=== PATIENT | female | born 1970 | race African-American/Black ===

== ENCOUNTER → 2020-08-20 | Outpatient (CLI) | payer OTHER ==
--- NOTE | ~2020-08-20 | PFR/MVV ---
[facility] [place] [address] PULMONARY FUNCTION MVV/REPORT Name: MAGDA HILL Room #: [facility]#: [id number] Admission: 08/20/20 Attend Phys: Chin Tariq MD Discharge: Date of : 70 Report #: [id number] THIS REPORT FOR: //name// >> SPIROMETRY: (BTPS) Height: 66 in cm Weight: 213 lbs kg Exam Date: 08/15/20 PRE-RX POST-RX PRED BEST %PRED BEST %PRED %CHG FVC LITERS . 3.54 . 2.63 . 76 . 2.66 . 75 . -1 FEV1 LITERS . 2.69 . 2.04 . 76 . 1.98 . 74 . -3 FEV1/FVC % . 75 . 76 . 101 . 75 . 99 . -2 BNU62-46% L/Sec . 3.01 . 1.75 . 58 . 1.67 . 56 . -4 PEF L/SEC . 6.23 . 5.63 . 90 . 3.66 . 59 . -35 FEF50/FIF50 UNITLESS . 3.76 . 2.79 . 74 . 2.17 . 58 . -22 MVV L/Min . 100 . 65 . 65 f 1/Min . . . >> LUNG VOLUMES: (BTPS) PRE-RX POST-RX PRED AVG %PRED AVG %PRED %CHG VC Liters . 3.54 . 3.83 . 108 . . . TLC Liters . 5.38 . 3.90 . 73 . . . RV Liters . 1.92 . 0.07 . 4 . . . RV/TLC % . 35 . 2 . 5 . . . FRC PL Liters . 2.53 . 0.65 . 26 . . . FRC N2 Liters . 2.53 . . . . . ERV Liters . 1.18 . 0.57 . 49 . . . IC Liters . 2.36 . 3.25 . 138 . . . >> DIFFUSION: DLCO ml/Min/mmHg . 26.5 . 18.7 . 70 . . . DL Jairo ml/Min/mmHg . 26.5 . 18.7 . 70 . . . DLCO/VA ml/Min/mmHg . 4.01 . 4.45 . 111 . . . VA Liters . . 4.20 . . . . COMMENTS: COMMENTS: >> RESISTANCE: [facility] [address] [place] [address] PULMONARY FUNCTION MVV/REPORT Name: MAGDA HILL SOPHIA Room #: [facility].#: [id number] Admission: 08/20/20 Attend Phys: Chin Tariq MD Discharge: Date of : 70 Report #: [id number] PRE-RX PRED AVG %PRED Raw Total cmH20/L/Sec . . 2.08 . Raw Insp cmH20/L/Sec . . 1.98 . Raw Exp cmH20/L/Sec . . 1.98 . Raw cmH20/L/Sec . 1.53 . 1.61 . 105 Gaw L/Sec/cmH20 . 0.607 . 0.623 . 103 sRaw cmH20 Sec . 3.86 . 4.00 . 103 sGaw l/cmH20 Sec . 0.259 . 0.250 . 97 Vtq Liters . . 2.49 . # = OUTSIDE 95% CONFIDENCE INTERVAL CALIBRATION: PRED: 3.00 ACTUAL: EXP 3.01 INSP 3.02 [facility] [place] [address] [id number] >> INTERPRETATION/IMPRESSION: DOC #: [id number] Bruce Alexis M.D. DATE OF SERVICE: 08/20/2020 Total lung capacity is 3.90 liters (73%). Vital capacity is 3.83 liters (108%). Diffusing capacity is 70%. Pulmonary function studies are consistent with a mild restrictive airflow defect. Diffusing capacity is mildly decreased. Bruce JESUS/CAILIN By: Bruce Alexis MD /nt
== END ==
LOC: PUL 08:22
PROVIDERS: ATTEND Orthopaedic Surgery
DX: R06.02 Shortness of breath (principal)